=== PATIENT | male | born 1995 | race Caucasian/White ===

== ENCOUNTER 2016-08-30 15:14 | Emergency (ER) | payer OTHER, BC ==
[~2016-08-30] VITALS: Ht 172.7 cm; Wt 95.3 kg
--- NOTE | 2016-08-30 15:38 | ED General ---
General Chief Complaint: Laceration Stated Complaint: R HAND MIDDLE FINGER LAC Nursing Triage Note: AMBULATED TO ROOM 06. STATES HE CUT HIS RIGHT MIDDLE FINGER AT WORK. Nursing Sepsis Screen: No Definite Risk Source of Information: Patient, Other (co-worker) Exam Limitations: No Limitations History of Present Illness Time Seen by Provider: 15:38 Initial Comments 21-year-old male patient presents to the emergency department with complaints of lacerating the right middle finger at work on a metal shear. Location Injury Occurred: work Timing/Duration: 1/2 Hour Modifying Factors: worse with Other (worse with palpation and movement.) Allergies and Home Medications Allergies Coded Allergies: Penicillins (Verified Allergy, Unknown, 08/30/16) Home Medications Tramadol HCl 50 Mg Tablet, 50 MG PO Q4H PRN for PAIN-MILD TO MODERATE, #14 Ref 0 Prescribed by: JORGE LUIS MAS on 08/30/16 4419 Constitutional: no symptoms reported Musculoskeletal: joint pain (rt middle finger), No joint swelling Skin: see HPI, other (cut the tip of the rt middle finger off. ) Psychiatric/Neurological: Denies Numbness, Tingling, Denies Weakness All Other Systems Reviewed Negative Unless Noted: Yes (Negative excepted noted.) Past [id number]-[id number] Hx Patient Social History Alcohol Use: Denies Use Recreational Drug Use: No Recent Foreign Travel: No Contact w/Someone Who Travel: No Recent Infectious Disease Expo: No Recent Hopitalizations: No Immunizations Up To Date Tetanus Booster (TDap): Unknown Seasonal Allergies Seasonal Allergies: Yes Surgeries Surgeries: Orthopedic Respiratory Hx Respiratory Disorders: No Cardiovascular Hx Cardiac Disorders: No Neurological Hx Neurological Disorders: No Musculoskeletal Hx Musculoskeletal Disorders: No Integumentary HX Skin/Integumentary Disorder: No Reviewed Nursing Assessment Reviewed/Agree w Nursing PMH: Yes Family Medical History Significant Family History: No Pertinent Family Hx Physical Exam Vital Signs Vital Sign - Last 12Hours 08/30/16 15:20 Temp 98.0 Pulse 89 Resp 16 B/P (MAP) 137/84 Pulse Ox 98 Capillary Refill : Less Than 3 Seconds General Appearance: No Apparent Distress, WD/WN Cardiovascular: Normal Peripheral Pulses Extremity: Normal Capillary Refill, Normal Range of Motion, Other (tip of the 3rd rt finger avulsed w/ involvement in the nail. no exposed bone noted. no active bleeding. ) Neurologic/Psychiatric: Alert, Oriented x3, No Motor/Sensory Deficits Skin: Normal Color, Warm/Dry, Other (tip of the 3rd rt finger avulsed w/ involvement in the nail. no exposed bone noted. no active bleeding. ) Progress/Results/Core Measures Results/Orders My Orders Orders - JORGE LUIS MAS Hydrocodone/Apap 7.5/325 Tab (Lortab 7. (08/30/16 15:49) Vital Signs/I&O Vital Sign - Last 12Hours 08/30/16 15:20 Temp 98.0 Pulse 89 Resp 16 B/P (MAP) 137/84 Pulse Ox 98 Blood Pressure Mean: 101 Departure Communication Progress Notes Patient seen and evaluated. Wound cleansed with chlorhexidine and sterile saline. Wound dressed with Adaptic, 2 x 2 gauze, and tube gauze. Alumifoam finger splint given to the patient to begin using tomorrow. F/u with occupational health in 5-7 days for wound recheck. Impression Impression: Primary Impression: Traumatic amputation of tip of finger of right hand Disposition: HOME, SELF-CARE Condition: Improved Departure-Patient Inst. Decision time for Depature: 15:57 Referrals: NO,LOCAL PHYSICIAN (PCP/Family) Primary Care Physician Patient Instructions: Amputation of the Finger or Fingertip (DC) Add. Discharge Instructions: All discharge instructions reviewed with patient and/or family. Voiced understanding. Medications as instructed. Tylenol extra strength over-the- counter as directed for pain. Ibuprofen 800 mg by mouth every 8 hours as needed for pain. Avoid soiling the dressing. Finger splint as instructed. Remove the dressing, shower with antibacterial soap, pat dry, apply triple antibiotic ointment twice daily for 3 days and cover with a bandage. Change the dressing twice daily. Follow-up with occupational health as an outpatient in the next 5-7 days for recheck. Return to the emergency department for worsened pain, discoloration, redness, fever, drainage, or any other concerns. Scripts Tramadol HCl (Tramadol HCl) 50 Mg Tablet 50 MG PO Q4H Y for PAIN-MILD TO MODERATE, #14 TAB 0 Refills Prov: JORGE LUIS MAS 08/30/16 JORGE LUIS MAS August 30, 2016 15:38
[2016-08-30] MEDS ORDERED: HYDROcodone/APAP 7.5 MG/325 MG (LORTAB, LORCET PLUS) TABLET PO STA (15:49)
[2016-08-30] MEDS ORDERED: TRAM50TA2 PO (15:59)
[2016-08-30 16:39] VITALS: BP 137/84
== END 2016-08-30 16:39 | disposition home or self-care (01) ==
LOC: ER 15:16
DX: S68.122A Partial traumatic metacarpophalangeal amputation of right middle finger, initial encounter (principal); W45.8XXA Other foreign body or object entering through skin, initial encounter; Y92.59 Other trade areas as the place of occurrence of the external cause; Y99.0 Civilian activity done for income or pay